=== PATIENT | male | born 1950 ===

== ENCOUNTER 2018-05-01 11:38 | Inpatient (IN) | payer MEDICARE, MEDICAID ==
[~2018-05-01] VITALS: Ht 180.3 cm; Wt 81.2 kg
[2018-05-01] MEDS ORDERED: Z GUARD REMEDY PASTE 57 GM TUBE TOP PRN (13:30)
[2018-05-01] MEDS ORDERED: AMLO10TA7 PO (13:47)
[2018-05-01] MEDS ORDERED: ACET-2154 PO (13:47)
[2018-05-01] MEDS ORDERED: ASPI-612 PO (13:49)
[2018-05-01] MEDS ORDERED: ATEN25TA PO (13:49)
[2018-05-01] MEDS ORDERED: BENA20TA9 PO (13:50)
--- NOTE | 2018-05-01 14:36 | NUR ---
Patient new admit came at 1250pm via ambulance with 2 EMT in stretcher in stable condition. Alert and orientedx4. On room air. On cardiac diet. No known allergy.Patient with DX: Acute CVA. right side weakness with history of HTN, leg fracture 2016, fall hx 3 yrs ago as patient stated. slight redness on right heel and sacrum noted. dryness/scaly skin noted mostly on both lower extremities. For ST/OT/PT evaluation for ambulation and ASL ability. no complaint voiced. will continue monitor
[2018-05-01 15:55] VITALS: BP 159/84
[2018-05-01] MEDS ORDERED: APIX2.5T PO (18:33)
--- NOTE | 2018-05-01 19:40 | NUR ---
Patient received in bed. AAO x4. Able to make needs known. No sign of acute distress or SOB was noted. On room air. No Complain of pain at this time. Patient assessed. Safety measures maintained. Fall prevention observed. Bed in low position, brake and alarm on, side rails up x2. Call light and personal belongings within reach. Will continue to monitor.
[2018-05-01 19:50] VITALS: BP 114/82
[2018-05-01] MEDS: APIXABAN 5 MG TABLET PO SCH (20:38)
[2018-05-02 04:40] VITALS: BP 123/72
--- NOTE | 2018-05-02 06:27 | NUR ---
End of the shift note Patient was stable throughout the shift and had a good sleep last night. No sign of acute distress or SOB noted. No Complain of pain at this time. patient assessment done. Skin assessed. Medications given as ordered and well tolerated. Keep him clean and dry. Safety measures maintained. All needs anticipated promptly. Fall precaution maintained. Bed in low position, brake and alarm on, side rails up x2. Call light and personal belongings within reach. Continue to monitor and will endorse to the day shift nurse accordingly.
[2018-05-02 07:05] VITALS: BP 142/73
[2018-05-02 07:20] LABS: BASOPHILS # (AUTO) 0.1 K/uL (0.0-8.0); BASOPHILS % (AUTO) 0.6 % (0.0-2.0); EOSINOPHILS # (AUTO) 0.2 K/uL (0.0-0.7); EOSINOPHILS % (AUTO) 2.3 % (0.0-7.0); HEMOGLOBIN 14.7 g/dL (12.5-16.3); LYMPHOCYTES # (AUTO) 1.8 K/uL (20.0-40.0); LYMPHOCYTES % (AUTO) 21.3 % (20.5-51.5); MEAN CORPUSCULAR HEMOGLOBIN 31.3 uug (23.8-33.4); MEAN CORPUSCULAR HGB CONC 33 g/dL (32.5-36.3); MEAN CORPUSCULAR VOLUME 93.6 fL (73.0-96.2); MONOCYTES # (AUTO) 0.8 K/uL (2.0-10.0); MONOCYTES % (AUTO) 9.1 % (0.0-11.0); NEUTROPHILS # (AUTO) 5.5 K/uL (1.8-8.9); NEUTROPHILS % (AUTO) 66.7 % (38.5-71.5); PLATELET COUNT (AUTO) 196 K/uL (152-348); WHITE BLOOD COUNT (AUTO) 8.3 K/uL (3.6-10.2)
[2018-05-02 07:38] LABS: CREATININE 0.7 mg/dL (0.6-1.3); MAGNESIUM 1.9 mg/dL (1.8-2.4); PHOSPHOROUS 3.5 mg/dL (2.5-4.9); POTASSIUM 3.5 mmol/L (3.5-5.1)
--- NOTE | 2018-05-02 08:10 | NUR ---
Received patient, awake alert x4. No new onset of weakness, no headache or dizziness noted. Denies any pain. On room air, tolerating well. Morning care done, oral care done. Encouraged to call for needs. Will continue to monitor.
[2018-05-02] MEDS ORDERED: BENAZEPRIL HCL 20 MG TABLET PO SCH (09:00)
[2018-05-02] MEDS ORDERED: ASPIRIN 325 MG TABLET PO SCH (09:00)
[2018-05-02] MEDS: ASPIRIN 81 MG TAB.CHEW PO SCH (09:06)
[2018-05-02] MEDS: BENAZEPRIL HCL 5 MG TABLET PO SCH (09:06)
[2018-05-02] MEDS: AMLODIPINE 10 MG TABLET PO SCH (09:06)
[2018-05-02] MEDS: ATENOLOL 25 MG TABLET PO SCH ×2 (09:07→17:09)
[2018-05-02] MEDS: APIXABAN 5 MG TABLET PO SCH ×2 (09:14→17:09)
--- NOTE | 2018-05-02 10:30 | NUR ---
Up with occupational therapy, tolerating well. Denies any pain at the moment.
[2018-05-02] MEDS ORDERED: MINERAL OIL/PETROLATUM,WHITE 57 GM TUBE TOP PRN (10:45)
--- NOTE | 2018-05-02 10:52 | NUR ---
WOUND CARE CONSULT: PT PRESENTS WITH VERY DRY FLAKY SKIN AND CALLUSED SKIN TO HEELS, PRESENT ON ADMISSION. PT IS CONTINENT. ALL SKIN PROTECTION RECOMMENDATIONS DISCUSSED WITH NURSING STAFF. WILL SEE PRN. IN AGREEMENT WITH PLAN OF CARE.
[2018-05-02 12:04] LABS: THYROID STIMULATING HORMONE 2.155 mIU/mL (0.358-3.740)
[2018-05-02 15:56] VITALS: BP 121/78
[2018-05-02 19:46] VITALS: BP 104/72
--- NOTE | 2018-05-02 23:23 | NUR ---
Received pt at the beginning of shift resting in bed and watching TV. AAO x4. No acute distress noted. No c/o pain or discomfort. Safety measures maintained. Call light and personal belongings within reach. Will continue to monitor.
[2018-05-03 04:30] VITALS: BP 111/69
--- NOTE | 2018-05-03 06:42 | NUR ---
Pt slept intermittently at night. Both heels offloaded. Pt turns and repositions independently, encouraged to do so, checked turning and repositioning q2h. All needs attended to promptly. Continue to monitor.
[2018-05-03 07:10] VITALS: BP 133/61
--- NOTE | 2018-05-03 09:00 | NUR ---
Received patient, awake, alert x3-4. Not in any form if distress, no dizziness, no headaches or new weakness noted. Denies any pain. Morning care one, oral care done. Tolerated diet and medications well. Encouraged to call for needs. Call light within reach. Will continue to monitor.
[2018-05-03] MEDS: ASPIRIN 81 MG TAB.CHEW PO SCH (09:06)
[2018-05-03] MEDS: ATENOLOL 25 MG TABLET PO SCH ×2 (09:07→16:33)
[2018-05-03] MEDS: BENAZEPRIL HCL 5 MG TABLET PO SCH (09:07)
[2018-05-03] MEDS: AMLODIPINE 10 MG TABLET PO SCH (09:07)
[2018-05-03] MEDS: APIXABAN 5 MG TABLET PO SCH ×2 (09:13→16:32)
--- NOTE | 2018-05-03 13:30 | NUR ---
Up with physical therapy, tolerating well was able to ambulate about 140 feet with moderate assistance. No complaints of pain. Encouraged fluids.
[2018-05-03 16:02] VITALS: BP 122/69
--- NOTE | 2018-05-03 17:22 | NUR ---
Patent tolerated diet and medications well. No S/S of aspiration. Stable throughout the shift. Baseline LOC, no new weakness noted. Call light within reach.
[2018-05-03 20:00] VITALS: BP 129/70
[2018-05-03] MEDS: ATORVASTATIN 10 MG TABLET PO SCH (20:59)
--- NOTE | 2018-05-03 21:06 | NUR ---
Received pt resting in bed and watching TV. AAO x4. No acute distress noted. No c/o pain or discomfort. Due med given as ordered, Lipitor 10mg was started tonight. Safety measures maintained. Call light and personal belongings within reach. Will continue to monitor.
[2018-05-04 04:45] VITALS: BP 114/52
[2018-05-04 08:00] VITALS: BP 122/73
[2018-05-04] MEDS: AMLODIPINE 10 MG TABLET PO SCH (08:23)
[2018-05-04] MEDS: BENAZEPRIL HCL 5 MG TABLET PO SCH (08:23)
[2018-05-04] MEDS: ASPIRIN 81 MG TAB.CHEW PO SCH (08:23)
[2018-05-04] MEDS: APIXABAN 5 MG TABLET PO SCH ×2 (08:24→17:05)
[2018-05-04] MEDS: ATENOLOL 25 MG TABLET PO SCH ×2 (08:27→17:02)
--- NOTE | 2018-05-04 09:06 | NUR ---
INTERDISCIPLINARY TEAM CONFERENCE
[2018-05-04 16:00] VITALS: BP 108/78
--- NOTE | 2018-05-04 19:05 | NUR ---
Awake, watching TV during initial rounds. Denies any pain/discomforts at this time. Neuro assessment performed. Right facial droop still visible. Safety measure and fall precaution maintained. Urinal within easy reach. Continue care as planned.
[2018-05-04 19:45] VITALS: BP 126/73
[2018-05-04] MEDS: ATORVASTATIN 10 MG TABLET PO SCH (21:15)
--- NOTE | 2018-05-05 05:38 | NUR ---
Shift End Report: VS stable. Slept well. No complaint presented throughout the shift. No fall/injury. No s/s of neuro changes reported. All needs attended and met. No significant event reported all night. Continue current rehab plan of care.
[2018-05-05 05:57] VITALS: BP 123/62
[2018-05-05 07:30] VITALS: BP 111/71
[2018-05-05] MEDS: ASPIRIN 81 MG TAB.CHEW PO SCH (09:17)
[2018-05-05] MEDS: AMLODIPINE 10 MG TABLET PO SCH (09:18)
[2018-05-05] MEDS: ATENOLOL 25 MG TABLET PO SCH ×2 (09:19→17:41)
[2018-05-05] MEDS: BENAZEPRIL HCL 5 MG TABLET PO SCH (09:20)
[2018-05-05] MEDS: APIXABAN 5 MG TABLET PO SCH ×2 (09:23→17:44)
--- NOTE | 2018-05-05 13:04 | NUR ---
INTERDISCIPLINARY TEAM CONFERENCE
[2018-05-05 16:00] VITALS: BP 118/77
--- NOTE | 2018-05-05 18:47 | NUR ---
SBAR report received this morning, board updated. Pt assessed, no acute distress, SOB, or pain noted. Right sided weakness evident secondary from acute CVA. Pt teaching provided r/t stroke and prevention. Pt compliant with with all routinely scheduled medications and therapies as offered. VSS. Pt cooperative with need to switch rooms. Pt and belongings safely switched to room 109. No changes to Pt status throughout this shift. Bed in locked and lowest position with side rails up x2, alarm on. Call light placed within reach. Will continue to monitor and endorse to oncoming night filler nurse.
--- NOTE | 2018-05-05 19:10 | NUR ---
Awake during initial rounds. Denies any pain/discomforts at this time. No s/s of respiratory distress noted. Right facial droop still visible . clear speech. No drooling. No drift noted on BUE's, slight dragging on right LE during ambulation. Safety measures and fall precaution maintained. Continue care as planned.
[2018-05-05 19:30] VITALS: BP 107/68
[2018-05-05] MEDS: ATORVASTATIN 10 MG TABLET PO SCH (20:22)
[2018-05-06 05:48] VITALS: BP 100/68
--- NOTE | 2018-05-06 06:24 | NUR ---
Shift End Report: VS stable. No new neurological changes reported. Right facial droop. No swallowing problem presented. No slurred speech. Uses urinal for elimination. Voiding good. Denies any pain/discomforts. No fall/injury. All needs attended and met. No significant event reported all night. Continue current rehab plan of care.
[2018-05-06] MEDS: BENAZEPRIL HCL 5 MG TABLET PO SCH (09:00)
[2018-05-06] MEDS: AMLODIPINE 10 MG TABLET PO SCH (09:00)
[2018-05-06] MEDS: ATENOLOL 25 MG TABLET PO SCH ×2 (09:00→17:11)
[2018-05-06] MEDS: APIXABAN 5 MG TABLET PO SCH ×2 (09:21→17:13)
[2018-05-06] MEDS: ASPIRIN 81 MG TAB.CHEW PO SCH (09:21)
[2018-05-06 16:41] VITALS: BP 124/84
--- NOTE | 2018-05-06 19:15 | NUR ---
Awake, pleasant, denies any pain/discomforts at this time. Watching TV. Safety measure and fall precaution maintained. Continue care as planned.
[2018-05-06 19:46] VITALS: BP 127/84
[2018-05-06] MEDS: ATORVASTATIN 10 MG TABLET PO SCH (20:54)
[2018-05-07 04:50] VITALS: BP 127/77
--- NOTE | 2018-05-07 07:11 | NUR ---
Shift End Report: VS stable. No complaint presented all night. No fall/injury. All needs attended and met. No significant event reported all night. Continue current rehab plan of care.
[2018-05-07] MEDS: ASPIRIN 81 MG TAB.CHEW PO SCH (08:39)
[2018-05-07] MEDS: BENAZEPRIL HCL 5 MG TABLET PO SCH (08:40)
[2018-05-07] MEDS: AMLODIPINE 10 MG TABLET PO SCH (08:40)
[2018-05-07] MEDS: APIXABAN 5 MG TABLET PO SCH ×2 (08:46→15:58)
[2018-05-07] MEDS: ATENOLOL 25 MG TABLET PO SCH ×2 (08:47→15:57)
[2018-05-07 15:47] VITALS: BP 112/76
--- NOTE | 2018-05-07 16:10 | NUR ---
ACCORDING TO PT HE HAD HIS FIRST STROKE 8 YEARS AGO NOT 8 MONTHS AGO STATED IN THE HX. SECOND STROKE WAS LAST MONTH WHERE HE CALLED THE AMBULANCE, WAS TAKEN [facility] AND NOW HERE FOR INPATIENT REHABILITATION.
--- NOTE | 2018-05-07 19:20 | NUR ---
Awake, watching ball game. Denies any pain/discomforts at this time. Continue care as planned
[2018-05-07 19:51] VITALS: BP 112/55
[2018-05-07] MEDS: ATORVASTATIN 10 MG TABLET PO SCH (20:47)
[2018-05-08 04:35] VITALS: BP 111/71
--- NOTE | 2018-05-08 06:54 | NUR ---
Shift End Report: VS stable. Slept well. No complaint presented all night. No fall/injury. No s/s of neuro changes noted. All needs attended and met. No significant event reported. Continue current rehab plan of care.
--- NOTE | 2018-05-08 07:46 | NUR ---
Received patient awake, alert, not in any form of acute distress. He denies any pain or discomfort at this time. Assisted patient to sit on the wheelchair. Needs attended to. Call light and frequently used items placed within reach.
[2018-05-08 08:06] VITALS: BP 146/83
[2018-05-08] MEDS: ASPIRIN 81 MG TAB.CHEW PO SCH (08:14)
[2018-05-08] MEDS: APIXABAN 5 MG TABLET PO SCH ×2 (08:16→18:06)
[2018-05-08] MEDS: AMLODIPINE 10 MG TABLET PO SCH (08:18)
[2018-05-08] MEDS: BENAZEPRIL HCL 5 MG TABLET PO SCH (08:19)
[2018-05-08] MEDS: ATENOLOL 25 MG TABLET PO SCH ×2 (08:20→18:08)
[2018-05-08 16:36] VITALS: BP_SYST 119; BP_SYST 89; BP_DIAS 65; BP_DIAS 70
[2018-05-08] MEDS: ACETAMINOPHEN 325 MG TABLET PO PRN (18:30)
--- NOTE | 2018-05-08 18:45 | NUR ---
Patient seen by Dr. Walsh with no new order. Patient remains alert, not in any acute distress. Patient asked for pain medicine for complaint of mild pain on his right foot, and administered tylenol PRN as ordered. Will endorse accordingly to next shift.
--- NOTE | 2018-05-08 19:00 | NUR ---
Awake, watching TV at this time. HOB elevated. Denies any pain/discomforts. Safety measure and fall precaution maintained. Continue care as planned.
[2018-05-08 20:06] VITALS: BP 91/58
[2018-05-08] MEDS: ATORVASTATIN 10 MG TABLET PO SCH (20:13)
[2018-05-09 04:46] VITALS: BP 102/66
--- NOTE | 2018-05-09 06:29 | NUR ---
Shift End Report: Vs stable. Slept good. No complaint presented all night. All needs attended and met. No fall/injury.No significant event reported. Continue current rehab plan of care.
--- NOTE | 2018-05-09 09:07 | NUR ---
Received patient. awake ,alert x4. Not in any form of distress. Denies any pain. Baseline LOC, no new weakness noted. Morning care done. Encouraged to call for needs.
[2018-05-09] MEDS: AMLODIPINE 10 MG TABLET PO SCH (09:10)
[2018-05-09] MEDS: ATENOLOL 25 MG TABLET PO SCH ×2 (09:11→17:00)
[2018-05-09] MEDS: BENAZEPRIL HCL 5 MG TABLET PO SCH (09:11)
[2018-05-09] MEDS: ASPIRIN 81 MG TAB.CHEW PO SCH (09:11)
[2018-05-09 09:12] VITALS: BP 116/67
[2018-05-09] MEDS: APIXABAN 5 MG TABLET PO SCH ×2 (09:15→17:44)
--- NOTE | 2018-05-09 14:00 | NUR ---
Up with physical therapy, was able to ambulate. With daughter during therapy. Denies any pain.
[2018-05-09 16:50] VITALS: BP 99/69
[2018-05-09] MEDS: ACETAMINOPHEN 325 MG TABLET PO PRN (18:52)
[2018-05-09 20:01] VITALS: BP 105/63
[2018-05-09] MEDS: ATORVASTATIN 10 MG TABLET PO SCH (20:35)
[2018-05-10 04:00] VITALS: BP 122/74
[2018-05-10 08:00] VITALS: BP 125/74
--- NOTE | 2018-05-10 08:22 | NUR ---
Patient noted sitting up in wheelchair, denies pain at this time, no signs of distress noted, call light in reach, bed locked and in lowest position, all needs met
[2018-05-10] MEDS: ATENOLOL 25 MG TABLET PO SCH ×2 (09:12→17:11)
[2018-05-10] MEDS: ASPIRIN 81 MG TAB.CHEW PO SCH (09:12)
[2018-05-10] MEDS: AMLODIPINE 10 MG TABLET PO SCH (09:13)
[2018-05-10] MEDS: BENAZEPRIL HCL 5 MG TABLET PO SCH (09:14)
[2018-05-10] MEDS: APIXABAN 5 MG TABLET PO SCH ×2 (09:16→17:13)
--- NOTE | 2018-05-10 09:41 | NUR ---
I agree with treatment provided Addendum: 05/10/18 at 0943 by GUSTAVO BRAR, PT PT Amended: Links added.
[2018-05-10 16:00] VITALS: BP 119/71
--- NOTE | 2018-05-10 18:52 | NUR ---
Patient took all medications this shift, no complaints of pain, no signs of distress, no changes noted, vitals signs are stable, call light placed in reach, bed locked and in lowest position
[2018-05-10 19:48] VITALS: BP 107/57
[2018-05-10] MEDS: ATORVASTATIN 10 MG TABLET PO SCH (20:28)
[2018-05-11 04:00] VITALS: BP 105/65
[2018-05-11 07:30] VITALS: BP 99/65
[2018-05-11] MEDS: AMLODIPINE 10 MG TABLET PO SCH (09:00)
[2018-05-11] MEDS: ATENOLOL 25 MG TABLET PO SCH ×2 (09:23→16:49)
[2018-05-11] MEDS: BENAZEPRIL HCL 5 MG TABLET PO SCH (09:23)
[2018-05-11] MEDS: ASPIRIN 81 MG TAB.CHEW PO SCH (09:23)
[2018-05-11] MEDS: APIXABAN 5 MG TABLET PO SCH ×2 (09:28→16:52)
[2018-05-11 16:08] VITALS: BP 119/67
[2018-05-11] MEDS: ATORVASTATIN 10 MG TABLET PO SCH (20:14)
[2018-05-11 20:17] VITALS: BP 102/66
--- NOTE | 2018-05-11 21:23 | NUR ---
Received pt sleeping comfortably in bed. Aroused easily to name. AAO x4. No acute distress noted. No c/o pain or discomfort. All due med given as ordered. Call light and personal belongings within reach. Will continue to monitor.
[2018-05-12 05:48] VITALS: BP 110/60
[2018-05-12 07:30] VITALS: BP 137/79
--- NOTE | 2018-05-12 08:33 | NUR ---
Received patient, sitting in wheelchair. No SOB, chest pains or new weakness noted. Baseline LOC, alert x4. Not in any form of distress. Morning care done. Encouraged to call for needs.
[2018-05-12] MEDS: BENAZEPRIL HCL 5 MG TABLET PO SCH (09:15)
[2018-05-12] MEDS: ASPIRIN 81 MG TAB.CHEW PO SCH (09:15)
[2018-05-12] MEDS: AMLODIPINE 10 MG TABLET PO SCH (09:15)
[2018-05-12] MEDS: ATENOLOL 25 MG TABLET PO SCH ×2 (09:16→17:00)
[2018-05-12] MEDS: APIXABAN 5 MG TABLET PO SCH ×2 (09:22→17:23)
--- NOTE | 2018-05-12 10:33 | NUR ---
Up with occupational therapy, tolerating well. Denies any pain. Able to ambulate.
--- NOTE | 2018-05-12 13:43 | NUR ---
INTERDISCIPLINARY TEAM CONFERENCE
[2018-05-12 15:48] VITALS: BP 87/59
--- NOTE | 2018-05-12 17:24 | NUR ---
Held Atenolol, decreased blood pressure. Patient asymptomatic. No dizziness or SOB. Baseline LOC.
[2018-05-12] MEDS: ATORVASTATIN 10 MG TABLET PO SCH (20:00)
[2018-05-12 20:01] VITALS: BP 103/56
[2018-05-13 04:44] VITALS: BP 97/58
[2018-05-13] MEDS: ASPIRIN 81 MG TAB.CHEW PO SCH (08:31)
[2018-05-13] MEDS: BENAZEPRIL HCL 5 MG TABLET PO SCH (08:32)
[2018-05-13] MEDS: ATENOLOL 25 MG TABLET PO SCH ×2 (08:32→16:42)
[2018-05-13] MEDS: AMLODIPINE 10 MG TABLET PO SCH (08:33)
[2018-05-13] MEDS: APIXABAN 5 MG TABLET PO SCH ×2 (08:34→16:41)
[2018-05-13 09:00] VITALS: BP 111/72
[2018-05-13 17:00] VITALS: BP 130/81
--- NOTE | 2018-05-13 18:00 | NUR ---
Tolerated medications well. Tolerated therapy. No pain noted.
[2018-05-13 19:40] VITALS: BP 107/69
--- NOTE | 2018-05-13 19:40 | NUR ---
Received patient, awake, alert x4. No new weakness, baseline LOC. Denies any pain. Not in any form of distress. Encouraged to call for needs.
[2018-05-13] MEDS: ATORVASTATIN 10 MG TABLET PO SCH (20:55)
[2018-05-14 07:00] VITALS: BP 97/61
[2018-05-14] MEDS: ASPIRIN 81 MG TAB.CHEW PO SCH (08:44)
[2018-05-14] MEDS: BENAZEPRIL HCL 5 MG TABLET PO SCH (08:46)
[2018-05-14] MEDS: AMLODIPINE 10 MG TABLET PO SCH (08:46)
[2018-05-14] MEDS: ATENOLOL 25 MG TABLET PO SCH ×2 (08:47→17:18)
[2018-05-14] MEDS: APIXABAN 5 MG TABLET PO SCH ×2 (08:50→17:23)
--- NOTE | 2018-05-14 08:54 | NUR ---
Patient noted sitting in wheel chair, denies pain at this time, no signs of distress noted, call light in reach, took all Am medications, blood pressure medication held for B/P: 105/69, HR: 74
[2018-05-14 09:00] VITALS: BP 105/69
[2018-05-14 18:20] VITALS: BP 145/81
--- NOTE | 2018-05-14 19:45 | NUR ---
Patient received sitting in bed. AAO x4. Able to make needs known. No sign of acute distress or SOB was noted. On room air. No Complain of pain at this time. Patient assessed. Safety measures maintained. Fall prevention observed. Bed in low position, brake and alarm on, side rails up x2. Call light and personal belongings within reach. Will continue to monitor.
[2018-05-14 20:02] VITALS: BP 113/65
[2018-05-14] MEDS: ATORVASTATIN 10 MG TABLET PO SCH (20:46)
--- NOTE | 2018-05-15 05:56 | NUR ---
End of the shift note Patient was stable throughout the shift and had a good sleep last night. No sign of acute distress or SOB noted. No Complain of pain. patient assessment done. Skin assessed. Medications given as ordered and well tolerated. Keep him clean and dry. Safety measures maintained. All needs anticipated promptly. Fall precaution maintained. Bed in low position, brake and alarm on, side rails up x2. Call light and personal belongings within reach. Continue to monitor and will endorse to the day shift nurse accordingly.
[2018-05-15 06:23] VITALS: BP 112/65
[2018-05-15 07:30] VITALS: BP 131/68
[2018-05-15] MEDS: AMLODIPINE 10 MG TABLET PO SCH (08:17)
[2018-05-15] MEDS: ASPIRIN 81 MG TAB.CHEW PO SCH (08:17)
[2018-05-15] MEDS: ATENOLOL 25 MG TABLET PO SCH ×2 (08:18→16:25)
[2018-05-15] MEDS: BENAZEPRIL HCL 5 MG TABLET PO SCH (08:18)
[2018-05-15] MEDS: APIXABAN 5 MG TABLET PO SCH ×2 (08:22→16:27)
--- NOTE | 2018-05-15 11:26 | NUR ---
Received patient in bed, awake in bed in stable condition. Continue therapy for ambulation and ADL ability. no complaint voiced. not in distress. will continue monitor
[2018-05-15 16:02] VITALS: BP 110/68
[2018-05-15 19:48] VITALS: BP 98/61
[2018-05-15] MEDS: ATORVASTATIN 10 MG TABLET PO SCH (20:30)
--- NOTE | 2018-05-15 22:44 | NUR ---
Received pt in bed, AAO x 4 watching television. No acute distress noted. Verbally responsive and able to make needs known. All due medications given as ordered, tolerated well. Denies pain or discomfort at this time. All safety measures and fall precautions maintained. Call light and all personal belongings within reach. Will continue to monitor.
[2018-05-16 05:11] VITALS: BP 105/72
[2018-05-16 08:04] VITALS: BP 108/63
[2018-05-16] MEDS: ASPIRIN 81 MG TAB.CHEW PO SCH (08:32)
[2018-05-16] MEDS: BENAZEPRIL HCL 5 MG TABLET PO SCH (08:37)
[2018-05-16] MEDS: AMLODIPINE 10 MG TABLET PO SCH (08:37)
[2018-05-16] MEDS: APIXABAN 5 MG TABLET PO SCH ×2 (08:37→17:21)
[2018-05-16] MEDS: ATENOLOL 25 MG TABLET PO SCH ×2 (08:38→17:19)
--- NOTE | 2018-05-16 08:43 | NUR ---
Patient noted sitting up in wheelchair, denies pain at this time, no signs of distress noted, call light in reach, took all AM medications, all needs met at this time
--- NOTE | 2018-05-16 18:20 | NUR ---
No changes noted this shift, no complaints of pain, no signs of distress, took all medications
[2018-05-16 20:00] VITALS: BP 116/82
[2018-05-16] MEDS: ATORVASTATIN 10 MG TABLET PO SCH (20:09)
[2018-05-17 04:00] VITALS: BP 110/65
--- NOTE | 2018-05-17 08:01 | NUR ---
Patient noted sitting in wheelchair watching TV, denies pain at this time, no signs of distress noted, call light in reach, all needs met at this time
[2018-05-17] MEDS: AMLODIPINE 10 MG TABLET PO SCH (08:18)
[2018-05-17 08:19] VITALS: BP 129/72
[2018-05-17] MEDS: BENAZEPRIL HCL 5 MG TABLET PO SCH (08:19)
[2018-05-17] MEDS: ASPIRIN 81 MG TAB.CHEW PO SCH (08:19)
[2018-05-17] MEDS: ATENOLOL 25 MG TABLET PO SCH (08:19)
[2018-05-17] MEDS: APIXABAN 5 MG TABLET PO SCH (08:26)
--- NOTE | 2018-05-17 14:39 | NUR ---
Patient discharged at this time, no complaints of pain, no signs of distress, exit care provided, discharge instructions given, Left facility via private car, medications faxed to pharmacy, all belongings accounted for and belongings sheet signed, Stroke packet given, MD Flores and Agapito informed of discharge, DME: walker provided
== END 2018-05-17 14:30 | disposition home health service (06) | DRG 57 ==
PROVIDERS: ADMIT Physical Medicine & Rehabilitation Pain Medicine; ATTEND Physical Medicine & Rehabilitation Pain Medicine
DX: I69.351 Hemiplegia and hemiparesis following cerebral infarction affecting right dominant side (principal); D68.59 Other primary thrombophilia; I69.392 Facial weakness following cerebral infarction; I69.328 Other speech and language deficits following cerebral infarction; I65.21 Occlusion and stenosis of right carotid artery; E78.5 Hyperlipidemia, unspecified; I10 Essential (primary) hypertension; Z87.891 Personal history of nicotine dependence
CPT/HCPCS: 36415; 70030-TC; 82652; 83735; 84100; 84443; 85025; 92507; 92523; 92526; 92610; 97110; 97112; 97116; 97165; 97530; 97535; A4663